=== PATIENT | female | born 1985 | race Caucasian/White ===

== ENCOUNTER 2018-08-09 16:54 | Outpatient (CLI) | payer OTHER ==
[2018-08-09 19:17] VITALS: BP 122/62; PULSE 86; TEMP 98.4
[2018-08-09 21:01] VITALS: RESP 18
--- NOTE | 2018-09-20 18:28 | P.MSEPDOC ---
Presenting Problems - Arrival Data Date of Arrival on Unit: 08/09/18 Time of Arrival on Unit: 17:10 Mode of Transport: Ambulatory - Complaint OB-Reason for Admission/Chief Complaint: Decreased Movement Comment: pt here after calling office to report decreased movement in twin a. states twin b moving as usual. directed to come for twin nst Medical History - Information : 2 Para: 1 Term: 0 : 0 Abortions: Spontaneous or Elective: 0 Number of Living Children: 0 - Gestational Age Gestational Age by DILLON (wks/days): 31 Weeks and 3 Days - History Complications: Multiple Review of Systems - Review of Systems Constitutional: No problems Breast: No problems ENT: No problems Cardiovascular: No problems Respiratory: No problems Gastrointestinal: No problems Genitourinary: No problems Musculoskeletal: No problems Neurological: No problems Skin: No problems Vital Signs - Temperature Temperature: 98.4 F Temperature Source: Oral - Pulse Brachial Pulse Rate: 86 Pulse Assessment Method: Pulse Oximetry - Respirations Respiratory Rate: 18 Oxygen Delivery Method: Room Air - Blood Pressure Right Arm Sitting Blood Pressure: 122/62 Blood Pressure Mean: 82 Blood Pressure Source: Automatic Cuff Medical Screen Scoring (Pre) - Cervical Exam Dilation: Exam Deferred - Uterine Contractions Frequency: N/A - Maternal Vital Signs Maternal Temperature: N/A Maternal Blood Pressure: N/A Signs of Preeclampsia: N/A Maternal Respirations: N/A - Pain Assessment Pain Intensity: 0 Pain Management Goal: 3 - Maternal Trauma Maternal Trauma: N/A - Assessment Baseline FHR: twin a 135 twin b 120 see obix both reassuring nst reactive Heart Rate - NICHD Category: Category I (Normal) = 0 NST: Reactive Position: N/A Station: N/A - Total Score Total Score (Pre): 0 - Level of Risk Level of Risk: N/A Physician Notification (Pre) - Physician Notified Physician Notified Date: 08/09/18 Physician Notified Time: 18:00 Physician/Practitioner Notifed:: Dr Aurora Lovell Order Received: Yes - Notification Comment Comment: Discharge home keep scheduled appt Medical Screen Scoring (Post) - Cervical Exam Dilation: Exam Deferred Effacement: Exam Deferred Membranes: Intact - Uterine Contractions Frequency: N/A Duration: N/A Intensity: N/A - Maternal Vital Signs Maternal Temperature: N/A Maternal Blood Pressure: N/A Signs of Preeclampsia: N/A Maternal Respirations: N/A - Pain Assessment Pain Scale Used: Numeric (1 - 10) Pain Intensity: 0 - Maternal Trauma Maternal Trauma: N/A - Assessment Heart Rate - NICHD Category: Category I (Normal) = 0 NST: Reactive Position: N/A Station: N/A - Total Score Total Score (Post): 0 - Post Treatment Level of Risk Post Treatment Level of Risk: Low (0-5) Physician Notification (Post) - Physician Notified Physician Notified Date: 08/09/18 Physician Notified Time: 18:00 Spoke With: Dr Simon New Order Received: Yes - Notification Comment Comment: Shanice Anderson RN spoke with Dr Simon at 1800 and gave report to OB. orders given to dc pt home and have her f/u with Dr Clarke as scheduled. Disposition - Disposition OB Disposition: Triage, Discharge to home, Written follow up instructions reviewed Discharge Date: 08/09/18 Discharge Time: 18:25 I agree with the RN Medical Screening Exam: Yes Risk & Benefit of care provided described in d/c instruction: Yes Diagnosis: DECREASED MOVEMENTS, THIRD TRIMESTER, FETUS 1
== END 2018-08-09 18:35 | disposition home or self-care (01) ==
LOC: FBPOP 16:54
PROVIDERS: ATTEND Obstetrics & Gynecology Obstetrics
DX: O36.8131 Decreased fetal movements, third trimester, fetus 1 (principal); Z3A.31 31 weeks gestation of pregnancy
CPT/HCPCS: 59025; 99213

== ENCOUNTER 2018-09-27 09:50 | Inpatient (IN) | payer BC, OTHER ==
[2018-09-26 17:46] VITALS: BMI 32.8
--- NOTE | 2018-09-27 06:32 | P.HPOB ---
History of Present Illness H&P Date: 09/27/18 Chief Complaint: Non-vertex twins This is a 33-year-old 2 para 1001 woman with an estimated due date of who is admitted at 38 weeks gestation for planned repeat low transverse section for non-vertex diamniotic dichorionic twins. Other than the multiple gestation her has been unremarkable. Recent ultrasound reveals breech, transverse position which has been consistent throughout the majority of the . Obstetrical history significant for primary low transverse section in 2014 for arrest of descent and dilatation at 40 weeks. Laboratory data: Blood type A+, antibody screen negative, rubella immune, VDRL nonreactive, hepatitis B surface antigen negative, HIV negative, diabetes screening within normal limits, group B strep negative. She received Tdap and her flu vaccine. Review of Systems All systems: negative Past Medical History Past Medical History: No Reported History Additional Past Medical History / Comment(s): EDEMA BLE. CURRENT . History of Any Multi-Drug Resistant Organisms: None Reported Past Surgical History: Section, Orthopedic Surgery Additional Past Surgical History / Comment(s): MAXIMO Knees 2013 Past Anesthesia/Blood Transfusion Reactions: Previous Problems w/ Anesthesia, Motion Sickness, Postoperative Nausea & Vomiting (PONV) Additional Past Anesthesia/Blood Transfusion Reaction / Comment(s): SPINAL/ EPIDURAL CAUSED N/V, LOWER HR. Smoking Status: Never smoker - Past Family History Mother Family Medical History: No Reported History Medications and Allergies Home Medications Medication Instructions Recorded Confirmed Type Pnv,Calcium 72/Iron/Folic Acid 1 tab PO DAILY 08/09/18 09/26/18 History [ Plus Tablet] Folic Acid (Unsure Dose) 1 tab PO DAILY 09/26/18 09/26/18 History Allergies Allergy/AdvReac Type Severity Reaction Status Date / Time No Known Allergies Allergy Verified 09/26/18 17:33 Exam Intake and Output 09/26/18 09/26/18 09/27/18 14:59 22:59 06:59 Other: Weight 86.636 kg This is a pleasant, visibly gravid, female in no obvious distress. HEENT exam is unremarkable remarkable. The lungs are clear to auscultation bilaterally and her breathing is unlabored. Heart is of regular rate and rhythm with a systolic flow murmur. The abdomen is gravid with a fundal height of greater than 40 cm. She has 1+ bilateral lower extremity edema. On recent pelvic examination the office she is 1 cm dilated and the presenting part unengaged in the pelvis. Assessment and Plan (1) History of Status: Acute Code(s): Z98.891 - HISTORY OF UTERINE SCAR FROM PREVIOUS SURGERY SNOMED Code(s): 995359282 (2) Twins Status: Acute Code(s): Z37.9 - OUTCOME OF DELIVERY, UNSPECIFIED SNOMED Code( s): 91593305 Plan: This is a 33-year-old 2 para 1 woman at 38+ weeks gestation who is admitted for planned repeat low transverse section for non-vertex diamniotic dichorionic twins. A repeat procedure has been reviewed with the patient on multiple occasions in the office including risks, benefits and alternatives. status has been reassuring in the office, she is group B strep negative and Rh+.
[2018-09-27] MEDS ORDERED: CITRIC ACID-SODIUM CITRATE 15 ML CUP PO ONE (10:04)
[2018-09-27] MEDS ORDERED: ceFAZolin IN SWFI 2 GM/20 ML SYRINGE IVP ONE (10:04)
[2018-09-27] MEDS ORDERED: LACTATED RINGERS 1,000 ML IV ONE (10:04)
[2018-09-27 10:30] LABS: Basophils % (A) 0 %; Eosinophils # (A) 0.2 k/uL (0-0.7); Eosinophils % (A) 2 %; HGB 14.4 gm/dL (11.4-16.0); Lymphocytes # (A) 1.6 k/uL (1.0-4.8); Lymphocytes % (A) 17 %; MCH 32.6 pg (25.0-35.0); MCHC 34.3 g/dL (31.0-37.0); MCV 95.1 fL (80.0-100.0); Monocytes # (A) 0.6 k/uL (0-1.0); Monocytes % (A) 6 %; Neutrophils # (A) 6.8 k/uL (1.3-7.7); Neutrophils % (A) 73 %; Platelet Count 198 k/uL (150-450); RBC 4.41 m/uL (3.80-5.40); WBC 9.3 k/uL (3.8-10.6)
[2018-09-27] MEDS ORDERED: KETOROLAC 30 MG/ML 1 ML VIAL ONE (11:15)
[2018-09-27] MEDS ORDERED: ONDANSETRON 4 MG/2 ML VIAL ONE (11:15)
[2018-09-27] MEDS ORDERED: MORPHINE SULFATE (PF) 0.3 MG/0.3 ML SYR ONE (11:15)
[2018-09-27] MEDS ORDERED: LACTATED RINGERS 1,000 ML BAG IV ONE (11:15)
[2018-09-27] MEDS ORDERED: PHENYLEPHRINE-0.9% NACL SYG 1 MG/10 ML SYRINGE ONE (11:15)
[2018-09-27] MEDS ORDERED: OXYTOCIN 10 UNIT/ML 1 ML VIAL ONE (11:15)
[2018-09-27] MEDS ORDERED: ePHEDrine SULFATE/0.9% NACL/PF 50 MG/5 ML SYRINGE IV ONE (11:15)
[2018-09-27] MEDS ORDERED: diphenhydrAMINE 25 MG CAP PO PRN (12:11)
[2018-09-27] MEDS ORDERED: NALOXONE 0.4 MG/ML 1 ML VIAL IV PRN (12:11)
[2018-09-27] MEDS ORDERED: HYDROcodone/APAP 5-325MG 1 EACH TAB PO PRN (12:11)
[2018-09-27] MEDS ORDERED: ONDANSETRON 4 MG/2 ML VIAL IVP PRN (12:11)
[2018-09-27] MEDS ORDERED: ZOLPIDEM 5 MG TAB PO PRN (12:11)
[2018-09-27] MEDS ORDERED: SIMETHICONE 80 MG CHEWABLE PO PRN (12:11)
[2018-09-27] MEDS ORDERED: diphenhydrAMINE 50 MG/ML 1 ML VIAL IVP PRN ×2 (12:11)
[2018-09-27] MEDS ORDERED: diphenhydrAMINE 50 MG CAP PO PRN (12:11)
[2018-09-27] MEDS ORDERED: METOCLOPRAMIDE 5 MG/ML 2 ML VIAL IVP PRN (12:11)
--- NOTE | 2018-09-27 12:12 | P.OP ---
Date of Procedure: 09/27/18 Preoperative Diagnosis: Intrauterine at 38-3/7 weeks Diamniotic dichorionic twins Breech, transverse lie History of previous low transverse section Postoperative Diagnosis: Same Procedure(s) Performed: Repeat low transverse section Anesthesia: spinal Surgeon: Yany Clarke Territory Manager #1: Rene Gunn Estimated Blood Loss (ml): 1,000 IV fluids (ml): 1,000 Urine output (ml): 50 Pathology: other (Placenta) Condition: stable Disposition: PACU Indications for Procedure: History of previous section, non-vertex twins Operative Findings: Twin A: Female, complete breech presentation, nuchal cord 1, Apgars of 8 at 1 minute and 9 at 5 minutes weighing 7 lbs. 1 oz., 3200 g Twin B: Female, transverse back up head to maternal right, Apgars of 7 at 1 minute and 8 at 5 minutes, weight 6 lbs. 10 oz., 3000 g. Left para ovarian cyst, 3 cm Description of Procedure: After the patient and her were met in the preoperative holding area and all questions were answered, she was taken to the operating room where spinal anesthetic was administered without incident. She was in positioned, prepped and draped in the dorsal supine position with a leftward tilt. Foster catheter in place. After anesthetic was confirmed adequate a low transverse skin incision was made and carried down to the underlying fascia sharply and with the electrocautery. The fascia was incised in the midline and extended bilaterally with the Naqvi scissors. The superior aspect of the fascial incision was densely adherent on and the underlying rectus muscles were dissected off the sharply and carefully. The inferior aspect of the fascial incision was also grasped, elevated and the underlying rectus muscles dissected off sharply. The rectus muscles were adherent in the midline. They were tented up and entered sharply using the Metzenbaum scissors. The peritoneal incision was extended inferiorly and superiorly. There were adhesions of the bladder flap up to the anterior mid uterus. These were carefully and sharply dissected away allowing for creation of the bladder flap. Bladder blade was placed. A low transverse uterine incision was made and clear fluid was noted. Uterine incision was extended bilaterally bluntly. Both feet of the presenting were at the incision. They were grasped and the was delivered without difficulty to the level of the scapula using a laparotomy towel. The was rotated to deliver the anterior and posterior arms. The head was then flexed and delivered. A nuchal cord 1 was reduced during this process. The cord was clamped and cut the nose once bulb suctioned and the infant was taken to the warmer. The uterus was then explored and the infant was in the back up transverse position with head to the maternal right. Membranes were ruptured and a hand presented at the incision. Internal version then was undertaken to allow for delivery of the head through the incision. The rest the was delivered rapidly onto the field. Nose and mouth were bulb suctioned. Cord was clamped and cut and the was taken to the warmer. The uterus was explored and the placenta was manually removed. Uterus was exteriorized and cleared of all clot and debris. The uterine incision was delineated using Matt's. The uterine incision was closed in a running locked fashion with 0 Vicryl suture followed by second imbricating layer of the same suture. The incision was inspected and noted to be hemostatic. The uterus was returned to the abdomen and the gutters were cleared of all clot and debris. Prior to returning the uterus to the abdomen a proximally 3-4 cm left paratubal simple cyst was noted. This was incised with the Bovie electrocautery and drained to prevent possible torsion during the returned to the abdomen. The uterine incision was reinspected and was noted to be hemostatic. The fascial edges peritoneal edges and rectus muscles were inspected and Bovie electrocautery was utilized where needed for hemostasis. The fascia was then closed with 0 Vicryl suture. The subcu tissue was copiously suction irrigated and reapproximated with 3-0 chromic. The skin was then closed in a subcutaneous fashion with 4-0 Vicryl suture. All counts reported to me as correct by the operating room staff. The patient received Pitocin at cord clamp. The patient was transported from the operating room in good condition.
[2018-09-27] MEDS ORDERED: OXYTOCIN 20 UNITS/1000 ML NS 1,000 ML IV SCH (12:15)
[2018-09-27] MEDS: LACTATED RINGERS 1,000 ML IV SCH (19:49)
[2018-09-27] MEDS: SENNOSIDES-DOCUSATE SODIUM 1 EACH TAB PO SCH (21:01)
[2018-09-27] MEDS: KETOROLAC 30 MG/ML 1 ML VIAL IVP PRN (22:43)
[2018-09-28 07:26] LABS: Basophils % (A) 0 %; Eosinophils # (A) 0.1 k/uL (0-0.7); Eosinophils % (A) 1 %; HCT 30.8 % (34.0-46.0); Lymphocytes # (A) 1.6 k/uL (1.0-4.8); Lymphocytes % (A) 15 %; MCH 33.4 pg (25.0-35.0); MCHC 34.6 g/dL (31.0-37.0); MCV 96.7 fL (80.0-100.0); Mean Platelet Volume 7.3; Monocytes # (A) 0.5 k/uL (0-1.0); Monocytes % (A) 5 %; Neutrophils # (A) 8.3 k/uL (1.3-7.7); Neutrophils % (A) 77 %; Platelet Count 181 k/uL (150-450); RBC 3.19 m/uL (3.80-5.40); RDW 14.3 % (11.5-15.5); WBC 10.8 k/uL (3.8-10.6)
[2018-09-28 07:29] LABS: HGB 10.7 gm/dL (11.4-16.0)
--- NOTE | 2018-09-28 07:59 | P.PNOBGPC ---
Subjective - Subjective Principal diagnosis: Twins at 38 weeks Interval history: Feeling well, both infants in the room with her. Breast-feeding successfully Patient reports: Reports appetite normal, Reports voiding normally, Reports pain well controlled, Reports ambulating normally, Denies dizzy ambulation : doing well, nursing well Objective - Vital Signs Latest vital signs: Vital Signs Temp Pulse Resp BP Pulse Ox 09/28/18 04:00 97.8 F 74 16 104/63 09/28/18 00:00 97.8 F 72 16 105/62 09/27/18 20:00 97.8 F 76 16 111/60 09/27/18 15:58 97.6 F 82 15 127/73 99 09/27/18 14:19 69 16 123/58 09/27/18 13:49 99.9 F H 72 16 140/66 09/27/18 13:19 98.1 F 75 16 116/59 09/27/18 13:04 97.2 F L 71 16 114/60 09/27/18 12:49 97.2 F L 74 16 141/60 09/27/18 12:34 96.9 F L 67 16 131/62 09/27/18 12:19 98.0 F 83 16 117/55 09/27/18 10:15 97.4 F L 100 16 116/59 100 Intake and Output 09/27/18 09/28/18 09/28/18 22:59 06:59 14:59 Output Total 140 300 Balance -140 -300 Output: Urine 140 300 Other: # Voids 30 1 - Exam Extremities: Present: edema Abdomen: Present: normal appearance, soft. Absent: tenderness Incision: Present: normal, dry, intact. Absent: erythematous Uterus: Present: normal, firm. Absent: tenderness - Labs Labs: Abnormal Lab Results - Last 24 Hours (Table) 09/28/18 Range/Units 07:05 WBC 10.8 H (3.8-10.6) k/uL RBC 3.19 L (3.80-5.40) m/uL Hgb 10.7 L D (11.4-16.0) gm/dL Hct 30.8 L (34.0-46.0) % Neutrophils # 8.3 H (1.3-7.7) k/uL Assessment and Plan (1) History of Current Visit: No Status: Acute Code(s): Z98.891 - HISTORY OF UTERINE SCAR FROM PREVIOUS SURGERY SNOMED Code(s): 458835595 (2) Twins Current Visit: No Status: Acute Code(s): Z37.9 - OUTCOME OF DELIVERY, UNSPECIFIED SNOMED Code(s): 25520214 Plan: Slit 33 year old 2 now para 2003 woman status post repeat low transverse section of non-vertex twins. Recovering well. Routine care.
[2018-09-28] MEDS: SENNOSIDES-DOCUSATE SODIUM 1 EACH TAB PO SCH ×2 (08:50→21:45)
[2018-09-28] MEDS: KETOROLAC 30 MG/ML 1 ML VIAL IVP PRN (08:54)
--- NOTE | 2018-09-28 14:06 | P.PN ---
Progress Note - Text Date:09/28 Time:738am Patient is status post . Patient seen this morning with VAS score of 0.no c/o of pruritus, no c/o nausea/vomiting, comfortable and doing well.
[2018-09-28] MEDS: IBUPROFEN 600 MG TAB PO PRN ×2 (15:46→21:45)
[2018-09-28] MEDS: ACETAMINOPHEN TAB 325 MG TAB PO PRN (18:55)
[2018-09-28] MEDS: LACTATED RINGERS 1,000 ML IV SCH ×4 (20:47→20:49)
[2018-09-29 00:12] VITALS: RESP 16
[2018-09-29] MEDS: ACETAMINOPHEN TAB 325 MG TAB PO PRN (03:49)
--- NOTE | 2018-09-29 07:40 | P.DS ---
Providers Date of admission: 09/27/18 09:50 Expected date of discharge: 09/29/18 Attending physician: Yany Clarke Primary care physician: Stated None - Discharge Diagnosis(es) (1) History of Current Visit: No Status: Acute (2) Twins Current Visit: No Status: Acute Hospital Course: This is a 33-year-old 2 now para 2003 woman who was admitted at 30+ weeks gestation for planned repeat low transverse section of non- vertex diamniotic dichorionic twins. She had had an uncomplicated other than the multiple gestation. She was admitted on 09/27/2018 where she went to the operating room. She was delivered of 2 female infants from the complete breech and transverse presentation. Please see the operative report for details. Her postoperative course was unremarkable. By the evening of postoperative day 0 she was tolerating a general diet. By the morning of postoperative day #1 she was voiding spontaneously with the catheter out. Her pain was well-controlled with oral pain medications. Her incision was well healing and her lochia was minimal. Her postoperative laboratory data was reassuring. By postoperative day #2 she continued to do well. Her incision was well healing both infants were rest feeding well. She was therefore discharged home with routine instructions for postoperative care and follow-up. Procedures: Repeat low transverse section Patient Condition at Discharge: Good Plan - Discharge Summary New Discharge Prescriptions: New Acetaminophen Tab [Tylenol] 650 mg PO Q4HR PRN tab PRN Reason: Mild Pain Or Fever >= 100.5 Ibuprofen [Motrin] 800 mg PO Q6HR PRN #30 tab PRN Reason: Mild Pain Or Fever >= 100.5 No Action Pnv,Calcium 72/Iron/Folic Acid [ Plus Tablet] 1 tab PO DAILY Folic Acid (Unsure Dose) 1 tab PO DAILY Discharge Medication List Pnv,Calcium 72/Iron/Folic Acid [ Plus Tablet] 1 tab PO DAILY 08/09/18 [ History] Folic Acid (Unsure Dose) 1 tab PO DAILY 09/26/18 [History] Acetaminophen Tab [Tylenol] 650 mg PO Q4HR PRN tab 09/29/18 [Rx] Ibuprofen [Motrin] 800 mg PO Q6HR PRN #30 tab 09/29/18 [Rx] Follow up Appointment(s)/Referral(s): Yany Clarke MD [STAFF PHYSICIAN] - 2 Weeks Activity/Diet/Wound Care/Special Instructions: Follow-up in 2 weeks after surgery in the office. Call the office with any concerning signs or symptoms including fever greater than 101, severe abdominal pain, heavy vaginal bleeding, signs of wound infection, increased swelling or redness of the lower extremities, signs of depression. No driving for 2 weeks after surgery. No heavy lifting or vigorous activity until reevaluated in the office. No intercourse for 6 weeks after delivery.
[2018-09-29] MEDS: SENNOSIDES-DOCUSATE SODIUM 1 EACH TAB PO SCH (08:06)
[2018-09-29 08:11] VITALS: BP 104/62; PULSE 75; TEMP 97.9
[2018-09-29] MEDS: IBUPROFEN 600 MG TAB PO PRN (08:15)
== END 2018-09-29 15:16 | disposition home or self-care (01) | DRG 788 ==
LOC: 4FBP 09:50
PROVIDERS: ADMIT Obstetrics & Gynecology; ATTEND Obstetrics & Gynecology
PROC: 0U910ZZ Drainage of Left Ovary, Open Approach (ICD-10-PCS; principal; 2018-09-27 12:00)
PROC: 10D00Z1 Extraction of Products of Conception, Low, Open Approach (ICD-10-PCS; principal; 2018-09-27 12:00)
DX: O30.043 Twin pregnancy, dichorionic/diamniotic, third trimester (principal); O34.211 Maternal care for low transverse scar from previous cesarean delivery; O32.1XX1 Maternal care for breech presentation, fetus 1; Z37.2 Twins, both liveborn; Z3A.38 38 weeks gestation of pregnancy; O69.81X0 Labor and delivery complicated by cord around neck, without compression, not applicable or unspecified; O32.2XX2 Maternal care for transverse and oblique lie, fetus 2; O34.83 Maternal care for other abnormalities of pelvic organs, third trimester; N83.202 Unspecified ovarian cyst, left side
CPT/HCPCS: 85025; 86850; 86900; 86901

== ENCOUNTER → 2024-05-15 | Outpatient (CLI) | payer BC ==
--- NOTE | 2024-05-16 08:59 | MM ---
Reason for Exam: Screening (asymptomatic). Baseline mammogram. Patient History: Menarche at age 13. First Full-Term at age 30. Late child-bearing (after 30). Paternal grandmother had breast cancer at or over age 50. Paternal aunt had breast cancer under age 50. Maternal aunt had breast cancer under age 50. Last menstrual period: 05/05/2024 Risk Values: Katherin 5 year model risk: 0.7%. NCI Lifetime model risk: 12.5%. Prior Study Comparison: Patient's first Mammogram. Tissue Density: The breasts are heterogeneously dense, which may obscure small masses. Findings: Analyzed By CAD. There is no suspicious group of microcalcifications or new suspicious mass in either breast. Benign calcifications noted. Asymmetric density in the central left breast. Overall Assessment: Incomplete: need additional imaging evaluation, BI-RAD 0 Management: Diagnostic Mammogram of the left breast. . Patient should continue monthly self-breast exams. A clinical breast exam by your physician is recommended on an annual basis. This exam should not preclude additional follow-up of suspicious palpable abnormalities. Note on Katherin scores and lifetime risk: 1. A Katherin score greater than 3% is considered moderate risk. If this is the case, consider specialist referral to assess eligibility for a risk reducing agent. 2. If overall lifetime risk for the development of breast cancer is 20% or higher, the patient may qualify for future screening with alternating mammogram and breast MRI. Electronically signed and approved by: Dru Borrero M.D. Radiologis
== END | disposition home or self-care (01) ==
LOC: RADMAMWWP 07:29
PROVIDERS: ATTEND Family Medicine
DX: Z12.31 Encounter for screening mammogram for malignant neoplasm of breast (principal); Z80.3 Family history of malignant neoplasm of breast
CPT/HCPCS: 77063; 77067

== ENCOUNTER → 2024-05-19 | Outpatient (CLI) | payer BC ==
--- NOTE | 2024-05-19 10:41 | MM ---
Reason for Exam: Additional evaluation requested from abnormal screening. Last screening mammogram was performed less than 1 month ago. Patient History: Menarche at age 13. First Full-Term at age 30. Late child-bearing (after 30). Paternal grandmother had breast cancer at or over age 50. Paternal aunt had breast cancer under age 50. Maternal aunt had breast cancer under age 50. Risk Values: Katherin 5 year model risk: 0.7%. NCI Lifetime model risk: 12.5%. Prior Study Comparison: 05/15/2024 Bilateral MG 3D screening mammo w/cad, [facility]. Tissue Density: Left: The breasts are heterogeneously dense, which may obscure small masses. Findings: Analyzed By CAD. No evidence for persistent mass or distortion. No suspicious calcifications. Overall Assessment: Negative, BI-RAD 1 Management: Screening Mammogram of both breasts in 1 year. . Results were given to the patient verbally at the time of exam. Patient should continue monthly self-breast exams. A clinical breast exam by your physician is recommended on an annual basis. This exam should not preclude additional follow-up of suspicious palpable abnormalities. Note on Katherin scores and lifetime risk: 1. A Katherin score greater than 3% is considered moderate risk. If this is the case, consider specialist referral to assess eligibility for a risk reducing agent. 2. If overall lifetime risk for the development of breast cancer is 20% or higher, the patient may qualify for future screening with alternating mammogram and breast MRI. Electronically signed and approved by: Ari Mueller M.D. Radiologis
== END | disposition home or self-care (01) ==
LOC: RADMAMWWP 10:12
PROVIDERS: ATTEND Family Medicine
DX: R92.332 Mammographic heterogeneous density, left breast (principal); R92.8 Other abnormal and inconclusive findings on diagnostic imaging of breast; Z80.3 Family history of malignant neoplasm of breast
CPT/HCPCS: 77061; 77065

== ENCOUNTER → 2024-07-13 | Outpatient (CLI) | payer BC ==
[2024-07-13 14:10] VITALS: BP 117/78; PULSE 64; RESP 16; TEMP 98.6
--- NOTE | 2024-07-13 15:10 | P.SLEEP ---
History of Present Illness DATE: 07/13/2024 CONSULTATION/NEW PATIENT EVALUATION HISTORY OF PRESENT ILLNESS/SLEEP-WAKE EVALUATION: 39-year-old lady had been e valuated in the sleep center for possible obstructive sleep apnea hypopnea syndrome and significant amount of movements during sleep. SLEEP SCHEDULE: Usually sleep schedule from 10 PM to 5:30 AM on weekdays and from 10:30 PM to 67 AM on weekend. FALLING ASLEEP: Sometimes patient has difficulties to fall asleep, used to read in bedroom. DURING SLEEP: Patient usually sleeps on the side and stomach position, wakes up from sleep up to 5 times with 1 episode of nocturia. Positive history of restless leg symptoms and movements during the sleep. No history of hypnogogical hallucinations, sleep paralysis, or cataplexy. DURING THE DAY/WAKE STATE: In the morning patient wake up tired, has episodes of irritability and anxiety. [place] sleepiness scale is 2. Patient does not take naps. PAST MEDICAL HISTORY: Anxiety. PAST SURGICAL HISTORY: , bilateral knee surgery. MEDICATIONS: Please see below. SOCIAL HISTORY: Please see below. FAMILY HISTORY: Mostly negative. REVIEW OF SYSTEMS: Multiple awakenings from sleep. No fevers. No double vision. No recent chest pain. No shortness of breath. No abdominal pain. No bleeding episodes. No blood in urine. No seizure episodes. PHYSICAL EXAMINATION: GENERAL: A pleasant patient without any distress. VITAL SIGNS: Please see below, weight 175 pounds BMI 30. HEENT: PERRLA, EOMI. Evaluation of oropharynx showed tongue protrudes midline, low position of soft palate Mallampati 4. NECK: Supple. No JVD. Thyroid is not palpable. 13.5 inches in circumference. LUNGS: Clear to percussion and to auscultation. Good air exchange. No wheezing or rhonchi. HEART: S1, S2 regular. No murmurs, gallops or rubs. ABDOMEN: Soft and nontender. Bowel sounds are present. No organomegaly appreciated. EXTREMITIES: No clubbing or cyanosis. CADET DECK: Awake, alert, and oriented x3. Cranial nerves 2 to 7 intact. There is no fasciculation or atrophy noted. No focal deficits observed. ASSESSMENT: 1. Multiple awakenings from sleep, small oropharyngeal airspace Mallampati 4. Possible obstructive sleep apnea hypopnea syndrome. 2. Significant amount of movements during the sleep, periodic limb movements. 3. Restless leg symptoms. 4. Mild obesity by body mass index 30. PLAN: 1. Polysomnography for evaluation of patient's breathing during sleep and to check for possible periodic limb movements. 2. Following plan after reading sleep study. 3. Preferable position during sleep on the side. 4. No driving if patient feels any sleepiness. Patient is aware of civil and criminal liability for unsafe driving. 5. Sleep hygiene with regular sleep time for at least 7.5-8 hours. 6. Watching weight. Thank you very much for referring this patient for consultation. Sincerely, Rahul Hazel MD, PhD, FAASM. Diplomat of [place] [employer], Sleep Medicine Board by [place] [employer] [place] [employer] [facility] [place] cc: Delio Sanchez MD Past Medical History Past Medical History: No Reported History Additional Past Medical History / Comment(s): EDEMA BLE. CURRENT . Insulin resistance History of Any Multi-Drug Resistant Organisms: None Reported Past Surgical History: Section, Orthopedic Surgery Additional Past Surgical History / Comment(s): knees 1214 Past Anesthesia/Blood Transfusion Reactions: No Reported Reaction Additional Past Anesthesia/Blood Transfusion Reaction / Comment(s): SPINAL/EPIDURAL CAUSED N/V, LOWER HR. Past Psychological History: No Psychological Hx Reported Smoking Status: Never smoker Past Alcohol Use History: None Reported Past Drug Use History: None Reported - Past Family History Mother Family Medical History: No Reported History Medications and Allergies Home Medications Medication Instructions Recorded Confirmed Type Vit No.180/Iron/Folic 1 tab PO DAILY 08/09/18 09/27/18 History [ Plus Tablet] Folic Acid (Unsure Dose) 1 tab PO DAILY 09/26/18 09/27/18 History Acetaminophen Tab [Tylenol] 650 mg PO Q4HR PRN tab 09/29/18 Rx Ibuprofen [Motrin] 800 mg PO Q6HR PRN #30 tab 09/29/18 Rx Sertraline [Zoloft] 50 mg PO DAILY 07/13/24 07/13/24 History hydrALAZINE HCL 25 mg PO DIRECTED PRN 07/13/24 07/13/24 History metFORMIN HCL ER [Glucophage XR] 500 mg PO DAILY 07/13/24 07/13/24 History Allergies Allergy/AdvReac Type Severity Reaction Status Date / Time No Known Allergies Allergy Verified 09/27/18 10:02 Physical Exam Vitals: Vital Signs Temp Pulse Resp BP Pulse Ox 07/13/24 14:08 98.6 F 64 16 117/78 100 Intake and Output 07/13/24 07/13/24 07/13/24 06:59 14:59 22:59 Other: Weight 79.379 kg Sleep Note - Sleep Data ESS Total: 2 - Sleep Note Sleep Note: Temperature: 98.6 F Pulse Rate: 64 Respiratory Rate: 16 Blood Pressure: 117/78 SpO2: 100 Height: 5 ft 4 in Weight: 79.379 kg BMI: Neck Circumference: 13.5
== END ==
LOC: 3 N SLEEP 13:39
PROVIDERS: ATTEND Internal Medicine
CPT/HCPCS: 99211

== ENCOUNTER → 2024-08-02 | Outpatient (CLI) | payer BC ==
--- NOTE | 2024-08-03 12:17 | P.PCN ---
Description of Procedure: CLINICAL: A home sleep apnea test has been done for confirmation of possible obstructive sleep apnea-hypopnea syndrome. DESCRIPTION OF PROCEDURE: RESULTS: Recording time was 7 hours 33 minutes. Evaluation time was 7 hours 17 minutes. Evaluation time is sufficient for making conclusion about results of the test. Raw data of sleep recording has been reviewed and is adequate. Respiratory channel showed 1 apneas and 5 hypopneas. Apnea-hypopnea index was 0.8 per hour. It was documented 20 snoring events during the test. Pulse rate in the range between minimum 40, maximum 166, average 60 by computer calculation. Lowest desaturation was 80%. IMPRESSION: 1. No significant respiratory abnormalities given documented during the sleep study. Please see other impressions from consultation. PLAN: 1. I will see patient for follow-up visit to explain results of the test and recommendations . 2. Watching and losing weight. 3. Patient has history of significant movements during the sleep, but home sleep apnea test does not allow to check it, polysomnogram was not permitted by insurance. 4. Sleep hygiene with regular time in bed for at least 8 hours. 5. No driving if feeling any sleepiness. Thank you very much for allowing me to participate in the management of your patient. Sincerely, Rahul Hazel MD, PhD, FAASM Diplomat of [place] [employer] Sleep Medicine Board of [place] [employer] [facility] [place] cc: Delio Sanchez MD
== END | disposition home or self-care (01) ==
LOC: 3 N SLEEP 17:21
PROVIDERS: ATTEND Internal Medicine

== ENCOUNTER → 2025-05-16 | Outpatient (CLI) | payer BC ==
--- NOTE | 2025-05-16 08:27 | MM ---
Reason for Exam: Screening (asymptomatic). Last screening mammogram was performed 12 month(s) ago. Patient History: Menarche at age 13. First Full-Term at age 30. Late child-bearing (after 29). Paternal grandmother had breast cancer, age 60. Paternal aunt had breast cancer, age 35. Maternal aunt had breast cancer, age 40. Risk Values: Katherin 5 year model risk: 0.8%. NCI Lifetime model risk: 12.4%. Prior Study Comparison: 05/15/2024 Bilateral MG 3D screening mammo w/cad, [facility]. 05/19/2024 Left MG 3D work up w/cad , [facility]. Tissue Density: The breasts are heterogeneously dense, which may obscure small masses. Findings: Analyzed By CAD. Right breast: There is no suspicious group of microcalcifications or new suspicious mass. Left breast: There is no suspicious group of microcalcifications or new suspicious mass. Overall Assessment: Negative, BI-RAD 1 Management: Screening Mammogram of both breasts in [address] [facility] will attempt to contact patient to return for supplemental views and ultrasound if indicated. Patient should continue monthly self-breast exams. A clinical breast exam by your physician is recommended on an annual basis. This exam should not preclude additional follow-up of suspicious palpable abnormalities. Note on Katherin scores and lifetime risk: 1. A Katherin score greater than 3% is considered moderate risk. If this is the case, consider specialist referral to assess eligibility for a risk reducing agent. 2. If overall lifetime risk for the development of breast cancer is 20% or higher, the patient may qualify for future screening with alternating mammogram and breast MRI. [facility], , 05/16/2025 8:24 AM. Electronically signed and approved by: Gunnar Barnett DO
== END | disposition home or self-care (01) ==
LOC: RADMAMWWP 07:17
PROVIDERS: ATTEND Family Medicine
DX: Z12.31 Encounter for screening mammogram for malignant neoplasm of breast (principal); R92.333 Mammographic heterogeneous density, bilateral breasts; Z80.3 Family history of malignant neoplasm of breast
CPT/HCPCS: 77063; 77067